=== PATIENT | male | born 1955 | race Caucasian/White ===

== ENCOUNTER 2016-10-28 09:54 | Inpatient (IN) | payer OTHER ==
[2016-10-06 09:13] VITALS: Ht 190.5 cm; Wt 102.3 kg
--- NOTE | 2016-10-06 09:38 | PAT Medication Instructions ---
Service Date Oct 06, 2016. Current Home Medication List No Active Prescriptions or Reported Meds Medication Instructions For Your Scheduled Surgery No Active Prescriptions or Reported Meds - Please contact PAT department if starting any new medications prior surgery. If you have any questions please call us at [phone] or [phone] or [phone]
--- NOTE | 2016-10-06 10:11 | DIAGNOSTIC IMAGING REPORT ---
CHEST 2 VIEWS ROUTINE CLINICAL HISTORY: Preoperative chest COMPARISON STUDY: 07/14/2006 FINDINGS: The heart remains normal in size. There is no evidence of focal pulmonary consolidation. There is no evidence of failure. No pleural effusions are visualized.[ Mild eventration/elevation of the anterior aspect of the right hemidiaphragm is present. IMPRESSION: No active disease in the chest. Electronically signed by: Jessee Platt M.D. 10/06/2016 10:10 AM Dictated Date/Time: 10/06/2016 10:09 AM
[2016-10-06 10:26] LABS: BASO % 0.9 %; BASO ABS # 0.05 K/uL (0-0.2); COMPLETE YES; EOS % 3.2 %; HEMATOCRIT 44.8 % (42-52); IG% 0.2 %; LYMPH % 22.2 %; LYMPH ABS # 1.26 K/uL (1.2-3.4); MEAN CELL VOLUME 89.1 fL (80-100); MEAN CORPUSCULAR HEMOGLOBIN 31.2 pg (25-34); NEUT % 61.5 %; PLATELET COUNT 259 K/uL (130-400); RED BLOOD COUNT 5.03 M/uL (4.7-6.1); WHITE BLOOD COUNT 5.68 K/uL (4.8-10.8)
[2016-10-06 10:36] LABS: PARTIAL THROMBOPLASTIN RATIO 1.1; PROTHROMBIN TIME (PATIENT) 10.4 SECONDS (9.0-12.0)
[2016-10-06 12:33] LABS: BLOOD UREA NITROGEN 17 mg/dl (7-18); BUN/CREATININE RATIO 20.9 (10-20); CALCIUM 9.1 mg/dl (8.5-10.1); CARBON DIOXIDE 25 mmol/L (21-32); CHLORIDE 108 mmol/L (98-107); CREATININE 0.81 mg/dl (0.60-1.40); GLUCOSE 80 mg/dl (70-99); POTASSIUM 4.2 mmol/L (3.5-5.1); SODIUM 140 mmol/L (136-145)
[2016-10-06 12:36] LABS: C-REACTIVE PROTEIN < 0.29 mg/dl (0-0.29)
--- NOTE | 2016-10-23 17:11 | History and Physical ---
History & Physical Documentation Date Oct 23, 2016. Chief Complaint Left knee pain HPI (Knee Pain) Pain Location: Posterior knee, Medial knee Duration: Years Adversely Affecting: ADL's, Work, Recreation Symptoms Include: + Pain History of Injury/Trauma: Uncertain Non-Surgical Therapies: Behavior modification, Exercise program Mechanical Assistive Devices: none Joint Injection: Steroid Prior Orthopedic Procedures: Arthroscopy Past Medical/Surgical History Left carpal tunnel release Right TKR - 07/31/06 Additional History Hepatic Disease: No Endocrine Disorder: No Kidney Disease: No Hypertension: No Heart Disease: No Bleeding Tendencies: No Infectious Diseases: No Family History No Heart disease, No Pulmonary disease, No Anesthesia difficulties, No Bleeding tendencies Social History Smoking Status: Never Smoker Smokeless Tobacco Use: No Marital Status: Housing status: lives with family Occupational Status: employed Allergies Coded Allergies: No Known Allergies (Verified , 10/06/16) Home Medications No Active Prescriptions or Reported Meds Review of Systems Constitutional: No fever, No chills, No sweats, No weight loss, No weakness, No fatigue, No problem reported Respiratory: No cough, No sputum, No wheezing, No shortness of breath, No dyspnea on exertion, No dyspnea at rest, No hemoptysis, No problem reported Cardiovascular: No chest pain, No orthopnea, No PND, No edema, No claudication , No palpitations, No problem reported Abdomen: No pain, No nausea, No vomiting, No diarrhea, No constipation, No GI bleeding, No problem reported Musculoskeletal: + joint pain, + muscle pain Genitourinary - Male: No hematuria, No dysuria, No urinary frequency, No urinary urgency, No urinary hesitancy, No urinary retention, No urinary incontinence, No penile discharge, No lesions, No impotence, No problem reported Neurologic: No memory loss, No paralysis, No weakness, No numbness/tingling, No vertigo, No balance problems, No problem reported Physical Exam Skin: warm/dry, no rash Eyes: normal inspection ENT: normal ENT inspection Head: normocephalic Neck: supple, no adenopathy Respiratory/Chest: lungs clear Cardiovascular: regular rate, rhythm Abdomen / GI: non tender Back: normal inspection Neurovascular: Normal perfusion, Normal motor strength Neurologic/Psych: no motor/sensory deficits Physical Exam (Knee) Inspection: + Effusion Gait: + Antalgic Range of Motion: With crepitation (ROM limited with 5-90 degrees) Alignment: + Genu varum Stability: No Galina, No Anterior drawer, No Varus laxity, No Rotational laxity, No Posterior drawer, No Valgus laxity, No pertinent finding Tenderness: Medial joint line Radiology Plain Films: Osteophytes, Subchondral sclerosis Plain Films Joint Space: [id number], Severe narrowing Diagnosis & Plan Diagnosis & Plan (1) Left Knee DJD Left TKR
[~2016-10-28] VITALS: Ht 190.5 cm; Wt 102.3 kg
[~2016-10-28 09:54] MED LIST: ACETAMINOPHEN 500 MG TAB PO SCH; BUPIVACAINE 0.5 % 5 MG/1 ML PF 10ML VIAL ONE; BUPIVACAINE/EPINEPHRINE 0.25% 10 ML VIAL ONE; CEFAZOLIN 2000 MG/60 ML D5W 60 ML IV SCH; DEXAMETHASONE SOD INJ 4 MG/ML VIAL ONE; FAMOTIDINE 20 MG TAB PO SCH; GABAPENTIN 300 MG CAP PO SCH; LACTATED RINGER'S 1000ML 1,000 ML IV SCH; METOCLOPRAMIDE HCL 10 MG TAB PO SCH; SCOPOLAMINE 1.5 MG TDSY TD SCH; TRANEXAMIC ACID INJ 1,000 MG in SODIUM CHLORIDE 0.9% 100ML 100 ML IV SCH
[2016-10-28 10:38] VITALS: BP 173/102; PULSE 83; TEMP 36.9; O2SAT 96
--- NOTE | 2016-10-28 10:55 | History & Physical Bridge Note ---
H&P Re-Evaluation Bridge Note: I have examined the patient, reviewed the History & Physical and in the interval since the performance of the History & Physical I have noted the following changes of clinical significance: No changes noted
[2016-10-28] MEDS ORDERED: ONDANSETRON INJ 2 MG/ML 2 ML VIAL ONE (12:21)
[2016-10-28] MEDS ORDERED: PROPOFOL IV EMULSION 10 MG/ML 20 ML VIAL IV ONE (12:21)
[2016-10-28] MEDS ORDERED: FENTANYL CITRATE INJ 50 MCG/1 ML 2 ML VIAL ONE (12:21)
[2016-10-28] MEDS ORDERED: MIDAZOLAM HCL 1 MG/ML 2ML VIAL ONE ×2 (12:21)
[2016-10-28] MEDS ORDERED: BACITRACIN 50000 UNIT VIAL ONE (13:14)
[2016-10-28] MEDS ORDERED: BUPIVACAINE LIPOSOME 1/3% 266 MG/20 ML VIAL INFIL ONE (13:14)
[2016-10-28] MEDS ORDERED: SODIUM CHLORIDE 0.9% PF 50 ML VIAL ONE (13:14)
[2016-10-28] MEDS ORDERED: BUPIVACAINE/EPINEPHRINE 0.25% 10 ML VIAL ONE (13:18)
[2016-10-28] MEDS ORDERED: EpHEDrine SULFATE INJ 50 MG/ML AMP IV PRN (13:45)
[2016-10-28] MEDS ORDERED: FENTANYL CITRATE INJ 50 MCG/1 ML 2 ML VIAL IV PRN (13:45)
[2016-10-28] MEDS ORDERED: ATROPINE SULFATE 0.1 MG/ML 5ML SYR IV PRN (13:45)
[2016-10-28] MEDS ORDERED: PROMETHAZINE HCL INJ 6.25 MG in SODIUM CHLORIDE 0.9% 50ML 50 ML IV PRN (13:45)
[2016-10-28] MEDS ORDERED: ONDANSETRON INJ 2 MG/ML 2 ML VIAL IV PRN ×2 (13:45→15:15)
--- NOTE | 2016-10-28 15:13 | [facility] Post Operative Brief Note ---
Immediate Operative Summary Operative Date Oct 28, 2016. Pre-Operative Diagnosis Left knee degenerative joint disease Post-Operative Diagnosis Same as preop Procedure(s) Performed Left total knee arthroplasty Surgeon Dr. Abernathy Rn Cardiac Rehab Surgeon(s) Vipin Celis PA-C Estimated Blood Loss 50ml Findings Left Knee DJD Fluids (cc crystalloids) 1400 cc Specimens A: left knee bone and tissue Drains None Anesthesia Spinal Complication(s) None Disposition Recovery Room / PACU
[2016-10-28] MEDS ORDERED: MAGNESIUM HYDROXIDE SUSP 30 ML UDC PO PRN (15:15)
[2016-10-28] MEDS ORDERED: SILVER SULFADIAZINE 1% CR 50 GM JAR EXT PRN (15:15)
[2016-10-28] MEDS ORDERED: DiphenhydrAMINE HCL 50 MG/ML VIAL IV PRN (15:15)
[2016-10-28] MEDS ORDERED: MoRPHine SULFATE 2 MG/ML CARP IV PRN (15:15)
[2016-10-28] MEDS ORDERED: BISACODYL 10 MG SUPP PR PRN (15:15)
[2016-10-28] MEDS ORDERED: ZOLPIDEM TARTRATE 5 MG TAB PO PRN (15:15)
[2016-10-28] MEDS ORDERED: ALUMINUM/MAGNESIUM/SIMETH (MAALOX MAX) 30 ML UDC PO PRN (15:15)
[2016-10-28] MEDS ORDERED: METOCLOPRAMIDE HCL INJ 5 MG/ML 2 ML VIAL IV PRN (15:15)
[2016-10-28] MEDS ORDERED: TAMSULOSIN HCL 0.4 MG CAP PO PRN (15:15)
[2016-10-28] MEDS ORDERED: PHENYLEPHRINE 100MCG/ML 5ML SYR ONE (15:27)
--- NOTE | 2016-10-28 15:42 | DIAGNOSTIC IMAGING REPORT ---
LEFT KNEE 1 OR 2 VIEWS ROUTINE CLINICAL HISTORY: Postoperative evaluation. COMPARISON: Left knee radiographs September 08, 2016. FINDINGS: Alignment of the total left knee arthroplasty is anatomic. There is no periprosthetic fracture or unexpected radiopaque foreign body. There are skin dayday. IMPRESSION: Expected findings following total left knee arthroplasty. Electronically signed by: Edward Barnard M.D. 10/28/2016 3:41 PM Dictated Date/Time: 10/28/2016 3:41 PM
--- NOTE | 2016-10-28 15:46 | OPERATIVE REPORT ---
DATE OF OPERATION: 10/28/2016 SURGEON: Dr. Sami Abernathy. MACHINE HEEL SPRAYER: FRANKI Mary PREOPERATIVE DIAGNOSIS: Left knee degenerative joint disease. POSTOPERATIVE DIAGNOSIS: Same. PROCEDURE PERFORMED: Left cemented posterior stabilized total knee arthroplasty. COMPLICATIONS: None. ESTIMATED BLOOD LOSS: 50 mL. FLUID REPLACEMENT: 1400 mL crystalloid fluid replacement. TOURNIQUET TIME: 58 minutes at 300 mmHg. ANESTHESIA: Spinal with adductor canal block. DRAINS: None. SPECIMENS: Left knee sent for pathology. OPERATIVE INDICATIONS: The patient is a 61-year-old very active gentleman who is now about 10 years out from a right knee replacement. Over the past several years, he has developed increased pain and discomfort in his left knee. Very temporary response to conservative care. Pain has become more disabling. He elected to proceed with left total knee arthroplasty. OPERATIVE FINDINGS: Operative findings reveal advanced left knee medial compartment DJD. He had grade 4 [id number] disease in the medial femoral condyle and medial tibial plateau. He had a slight varus deformity. He had a flexion contracture of 10 degrees. Moderate size joint effusion. OPERATIVE IMPLANTS: Operative implants consisted of: 1. Biomet Vanguard size 70 left posterior stabilized femoral component. 2. Biomet size 79 tibial tray. 3. A 10-mm posterior stabilized polyethylene insert. 4. A 34 x 8.5 all poly patella. OPERATIVE PROCEDURE: The patient was taken to the operating room, identified and placed on the operating table in the supine position. All contact areas were appropriately padded. IV antibiotics were provided by anesthesia team. A spinal anesthetic and adductor canal block had been provided in the holding area. Salamanca catheter was placed in sterile fashion. Left thigh tourniquet was then placed and left lower extremity was then prepped and draped in the usual sterile fashion. Left leg was elevated and exsanguinated with Esmarch and tourniquet was placed at 300 mmHg. An anterior approach of the left knee was then performed through a longitudinal incision centered over the patella. Sharp dissection was carried through the subcutaneous tissues down to the level of the extensor mechanism. A medial parapatellar arthrotomy incision was made. Some subperiosteal dissection was carried out medially. The fat pad was resected from beneath the patellar tendon. The lateral patellofemoral ligament was released. The patella was everted and knee was flexed. The osteophytes were taken off the distal femur. The ACL and PCL were then released from the distal femur and the tibia subluxated anteriorly. The external tibial alignment jig was then placed in the anterior face of the tibia and adjusted 16 mm medially. Proximal tibial cut was made to remove about 2 mm of bone from the most deficient aspect of the medial tibial plateau. Some osteophytes were taken off medial and posteromedially. Tibia was sized to a size 79. Attention was then drawn to the femur. The distal femur was entered with a sharp drill. Intramedullary canal was suctioned. A left 6-degree valgus cutting guide was placed. Distal femoral cutting block was pinned in place. Distal femoral cut was made to take an additional 3 mm of bone off the distal femur. The femur was then sized to a size 70. We did downsize this slightly. The AP cutting block was pinned parallel to the epicondylar axis, which was 4 degrees of external rotation. The anterior cut, anterior chamfer, posterior cut, and posterior chamfer cuts were made. Box cutting guide was placed and adjusted slightly lateral and the box cut was made. The knee was flexed. The remnants of the medial and lateral meniscus were excised. The osteophytes were taken off the posterior aspect of the femur. Trial femoral component was placed. Tibial tray was pinned in maximum external rotation and drill and stem punch were used to create defect in the proximal tibia for the tibial tray. The knee was then trialed and the 10-mm insert fit most appropriately. Attention was then drawn to the patella. The patella was cleaned of all soft tissues. Patella thickness measured 25 mm and it was cut down to 15. It was sized to a size 34 patella. Lug holes were drilled for a 34 patella. Lateral osteophyte was removed. Patella button was placed. Knee was taken through range of motion and the patella tracked nicely with no thumbs test. Attention was then drawn toward placement of the permanent components. All trial components were removed. Bone plug was placed in the distal femur to limit blood loss. A double batch of Palacos G cement was mixed. A left size 70 posterior stabilized femoral component, size 79 tibial tray, and a 10-mm posterior stabilized polyethylene insert, and a 34 x 8.5 all poly patella then cemented in place. Knee was brought out into full extension until cement hardened. A final cement check was then performed. Pericapsular tissues were injected with 100 mL of a combination of 20 mL of Exparel, 30 mL of normal saline, and 50 mL of 0.25% Marcaine with epinephrine. The patient did receive 1 gram of tranexamic acid. The tourniquet was then let down for final tourniquet time of 58 minutes. Hemostasis was assured with use of electrocautery. The wound was once again irrigated. The extensor mechanism was then closed with a combination of #1 PDS suture and #1 Vicryl suture in a [id number] fashion. Extensor mechanism was checked and found to be intact. Subcutaneous tissues were then closed with 2-0 Dexon suture in a buried interrupted fashion. The skin was closed with skin dayday. Leg was then cleaned and dried and a sterile dressing of Xeroform, 4 x 4, sterile cast padding and Noam bandage were applied. The patient then transferred to the recovery room in stable condition. The patient tolerated the procedure well with no complications. All needle and sponge counts were correct at the end of the operation. I attest to the content of the Intraoperative Record and any orders documented therein. Any exception s are noted below.
--- NOTE | 2016-10-28 15:50 | Anesthesiology Progress Note ---
Anesthesia Post Op Note Date & Time Oct 28, 2016 at 15:50 Vital Signs Pain Intensity: 0 Vital Signs Past 12 Hours Date Time Temp Pulse Resp B/P (MAP) Pulse Ox O2 Delivery O2 Flow Rate FiO2 10/28/16 15:45 36.8 76 20 117/78 98 Nasal Cannula 2 10/28/16 15:35 76 20 121/74 98 Nasal Cannula 2 10/28/16 15:25 68 20 114/76 100 Oxymask 10 10/28/16 15:18 36.2 78 16 118/76 100 Oxymask 10 10/28/16 10:38 36.9 83 20 173/102 96 Room Air Notes Mental Status: alert / awake / arousable, participated in evaluation Pt Amnestic to Procedure: Yes Nausea / Vomiting: adequately controlled Pain: adequately controlled Airway Patency, RR, SpO2: stable & adequate BP & HR: stable & adequate Hydration State: stable & adequate Anesthetic Complications: no major complications apparent
[2016-10-28] MEDS: CHECK SCOPOLAMINE PATCH PLACEMENT SCH (16:00)
[2016-10-28 16:10] VITALS: BP 116/73; PULSE 73; TEMP 36.7; O2SAT 95
[2016-10-28 16:40] VITALS: BP 132/94; PULSE 68; O2SAT 98
[2016-10-28 17:10] VITALS: BP 147/99; PULSE 63; O2SAT 98
[2016-10-28] MEDS: D5W AND 1/2NSS + 20MEQ KCL 1,000 ML IV SCH (17:29)
[2016-10-28] MEDS: KETOROLAC TROMETHAMINE 30 MG/ML VIAL IV. SCH (17:31)
[2016-10-28] MEDS: FERROUS GLUCONATE 324 MG TAB PO SCH (18:03)
[2016-10-28 19:10] VITALS: BP 121/85; PULSE 63; TEMP 36.6; O2SAT 96
[2016-10-28] MEDS: TAPENTADOL ER 50 MG TABCR PO SCH (20:53)
[2016-10-28] MEDS: ASPIRIN 325 MG ECTAB PO SCH (20:54)
[2016-10-28] MEDS: SENNA 8.6 MG TAB PO SCH (20:55)
[2016-10-28] MEDS: DOCUSATE SODIUM 100 MG CAP PO SCH (20:55)
[2016-10-28] MEDS ORDERED: TRANEXAMIC ACID INJ 1,000 MG in SODIUM CHLORIDE 0.9% 100ML 100 ML IV SCH (21:00)
[2016-10-28] MEDS: CEFAZOLIN IV 2,000 MG in DEXTROSE 5% 50ML 50 ML IV SCH (21:55)
[2016-10-28] MEDS: ACETAMINOPHEN 500 MG TAB PO SCH (21:56)
[2016-10-28 23:35] VITALS: BP 113/71; PULSE 71; TEMP 36.8; O2SAT 96
[2016-10-29] MEDS: D5W AND 1/2NSS + 20MEQ KCL 1,000 ML IV SCH ×3 (00:32→13:08)
[2016-10-29] MEDS: KETOROLAC TROMETHAMINE 30 MG/ML VIAL IV. SCH ×5 (00:32→23:18)
[2016-10-29 04:00] VITALS: BP 112/73; PULSE 76; TEMP 36.6; O2SAT 96
[2016-10-29] MEDS: OXYCODONE HCL IR 5 MG TAB (IMMEDIATE RELEASE) PO PRN (04:10)
[2016-10-29] MEDS: CEFAZOLIN IV 2,000 MG in DEXTROSE 5% 50ML 50 ML IV SCH (05:32)
[2016-10-29] MEDS: ACETAMINOPHEN 500 MG TAB PO SCH ×3 (05:33→21:41)
[2016-10-29 06:22] LABS: HEMATOCRIT 39.6 % (42-52); MEAN CELL VOLUME 90.6 fL (80-100); MEAN CORPUSCULAR HGB CONC 33.1 g/dl (32-36); PLATELET COUNT 198 K/uL (130-400); RED BLOOD COUNT 4.37 M/uL (4.7-6.1); WHITE BLOOD COUNT 7.51 K/uL (4.8-10.8)
[2016-10-29 06:46] LABS: BUN/CREATININE RATIO 18.2 (10-20); CALCIUM 8.3 mg/dl (8.5-10.1); CREATININE 0.95 mg/dl (0.60-1.40); POTASSIUM 4.3 mmol/L (3.5-5.1)
[2016-10-29 07:49] VITALS: BP 128/80; PULSE 64; TEMP 36.6; O2SAT 97
[2016-10-29 07:50] VITALS: O2SAT 97
[2016-10-29] MEDS: CHECK SCOPOLAMINE PATCH PLACEMENT SCH ×4 (08:00→23:18)
[2016-10-29] MEDS: ASPIRIN 325 MG ECTAB PO SCH ×2 (08:37→21:39)
[2016-10-29] MEDS: DOCUSATE SODIUM 100 MG CAP PO SCH ×2 (08:38→21:42)
[2016-10-29] MEDS: MULTIVITAMIN TAB PO SCH (08:38)
[2016-10-29] MEDS: FERROUS GLUCONATE 324 MG TAB PO SCH ×3 (08:38→17:54)
[2016-10-29] MEDS: PANTOprazole SOD 40 MG TAB PO SCH (08:38)
[2016-10-29] MEDS: TAPENTADOL ER 50 MG TABCR PO SCH ×2 (08:38→21:42)
[2016-10-29 11:28] VITALS: BP 128/80; PULSE 70; TEMP 36.7; O2SAT 96
--- NOTE | 2016-10-29 12:42 | PROGRESS NOTE ---
DATE: 10/29/2016 SUBJECTIVE: A 61-year-old gentleman, postop day 1 from a left knee replacement. He is doing well. Really not having much pain. No chest pain or shortness of breath. Not feeling dizzy or lightheaded. OBJECTIVE: VITAL SIGNS: Temperature is 37.7. Vital signs stable. PHYSICAL EXAMINATION: GENERAL: This is a pleasant, middle-aged male. He is sitting up in bed and looks quite comfortable. EXTREMITIES: Examination of the left leg reveals the dressing to be clean, dry, and intact. He can dorsiflex and plantarflex his foot appropriately. He is neurologically intact. LABORATORY DATA: Hemoglobin is 13.1, hematocrit 39.6. Electrolytes are stable. ASSESSMENT: A 61-year-old gentleman, postop day 1 from a left knee replacement, doing well. Pain is controlled. PLAN: 1. DVT prophylaxis including thigh-high TEDs, SCDs, and aspirin twice a day. 2. PT/OT. Weightbearing as tolerated. Left total knee protocol. 3. Pain control, doing well with current pain regimen. 4. Disposition: Plan to discharge to home with some home health once adequately recovered.
[2016-10-29 15:02] VITALS: BP 115/72; PULSE 78; TEMP 36.8; O2SAT 98
[2016-10-29] MEDS ORDERED: ASPEC325 PO (19:00)
[2016-10-29] MEDS ORDERED: ACET-24 PO (19:00)
[2016-10-29] MEDS ORDERED: RXC5 PO (19:00)
--- NOTE | 2016-10-29 19:02 | Discharge Instructions ---
Discharge Instructions Date of Service Oct 29, 2016. Admission Reason for Admission: Left Knee Degenerative Joint Disease Discharge Discharge Diagnosis / Problem: Left Knee Replacement Discharge Goals Goal(s): Decrease discomfort, Improve function, Increase independence, Improve disease control, Therapeutic intervention Activity Recommendations Activity Limitations: per Instructions/Follow-up section Weightbearing Status: Left weightbearing . Instructions / Follow-Up Instructions / Follow-Up ACTIVITY RECOMMENDATIONS: Physical Therapy: * You will go to physical therapy three times each week for four to six weeks after your surgery in order to regain your knee range of motion and to retrain your knee to work properly. * It is just as important to make sure you are getting your knee perfectly straight as it is to regain your knee bend. * Taking a pain pill an hour before therapy can help you have a more productive and comfortable therapy session. Home Exercise: * You were shown a series of exercises (heel props, heel slides, etc.) in the hospital. Do these exercises three to four times each day including the exercises you were shown in physical therapy. Walking: * Get up and walk several times each day. For the first four weeks, try not to stand or walk for more than one hour at a time. If you do stand or walk for more than one hour, you will not hurt anything, but your knee and leg will likely swell. * As you feel comfortable, you may change from the walker or crutches to a cane and then to independent walking. MEDICATIONS: New Medicine: * You will likely be taking one or more of these medications: 1. Oxycodone - A quick and shorter-acting pain medication. Take one to two tablets every four to six hours to lessen your pain. 2. Aspirin - Thins your blood to lessen the chance of forming a blood clot. * The most common side effects of pain medicine and iron are nausea and constipation. If nausea or constipation is too much of a problem or if you have any questions about your new medicines or doses, call [facility] at . We will try to help you manage these issues. VERY IMPORTANT TO READ AND REVIEW" Pain: * The immediate post-operative period after knee replacement surgery is often quite painful. * You are given a prescription for pain medicine. You should take it, as directed, when you need it, especially before physical therapy and before going to bed. Pain that interferes with sleep is very common and can last several months. * You will likely need pain medicine for the first four to six weeks. It will not stop all of the pain. The pain will lessen and as you feel better, you may change to milder pain medicine such as Tylenol. * The most common side effects of pain medicine are nausea and constipation, so don't take more than you need. SPECIAL CARE INSTRUCTIONS: TEDs/Elastic Stockings: * The white elastic stockings help limit swelling and prevent blood clots from forming in your legs. The more you wear them, the more they work. * Wear them for six weeks after knee replacement surgery and four weeks after partial knee replacement. Prevention of Infection: * Take antibiotics one hour before any dental cleaning, dental work, urological procedure, gastrointestinal procedure or any invasive surgery in order to prevent your new joint from getting infected. * You may get the antibiotics from the doctor performing the procedure or you may call our office at before and we will call in a prescription to the pharmacy of your choice. Things to Watch For: * Drainage from the incision site that occurs more than one week after your surgery. * Severely increased knee/leg pain or swelling. * Increased redness at the incision site. * Fever above 102 degrees Fahrenheit. * Unusual chest pain or shortness of breath. * Unusual pain or burning with urination. Call [facility] at with any of the above problems or if you have any questions about your medicines or recovery. FOLLOW UP VISIT: Make an appointment to see your doctor for approximately two weeks after surgery for a progress check and staple removal by calling the office at . Current Hospital Diet Patient's current hospital diet: Regular Diet Discharge Diet Recommended Diet: Regular Diet Procedures Procedures Performed: Left total knee arthroplasty Pending Studies Studies pending at discharge: no Medical Emergencies . Who to Call and When: Medical Emergencies: If at any time you feel your situation is an emergency, please call [phone] immediately. . Non-Emergent Contact Non-Emergency issues call your: Surgeon . "Provider Documentation" section prepared by Sami Abernathy. . VTE Core Measure Inpt VTE Proph given/why not?: Other Anticoagulation, T.E.D. Stockings, SCD's
[2016-10-29] MEDS: SENNA 8.6 MG TAB PO SCH (21:41)
[2016-10-29 22:50] VITALS: BP 128/81; PULSE 84; TEMP 36.9; O2SAT 96
[2016-10-30] MEDS: ACETAMINOPHEN 500 MG TAB PO SCH (06:02)
[2016-10-30] MEDS: KETOROLAC TROMETHAMINE 30 MG/ML VIAL IV. SCH (06:02)
[2016-10-30 06:08] VITALS: BP 131/87; PULSE 71; TEMP 36.3; O2SAT 95
[2016-10-30] MEDS: OXYCODONE HCL IR 5 MG TAB (IMMEDIATE RELEASE) PO PRN (07:50)
[2016-10-30] MEDS: FERROUS GLUCONATE 324 MG TAB PO SCH (07:51)
[2016-10-30] MEDS: DOCUSATE SODIUM 100 MG CAP PO SCH (07:51)
[2016-10-30] MEDS: PANTOprazole SOD 40 MG TAB PO SCH (07:51)
[2016-10-30] MEDS: ASPIRIN 325 MG ECTAB PO SCH (07:51)
[2016-10-30] MEDS: MULTIVITAMIN TAB PO SCH (07:52)
[2016-10-30] MEDS: TAPENTADOL ER 50 MG TABCR PO SCH (07:53)
[2016-10-30 08:00] VITALS: BP_SYST 116; BP_SYST 122; BP_DIAS 68; BP_DIAS 78; PULSE 69; PULSE 80; TEMP 36.8; TEMP 37; O2SAT 93; O2SAT 97
[2016-10-30 08:15] VITALS: BP 116/78; PULSE 69; TEMP 37; O2SAT 97
--- NOTE | 2016-10-30 15:26 | PROGRESS NOTE ---
DATE: 10/30/2016 SUBJECTIVE: A 61-year-old gentleman postop day #2 from a left knee replacement. He is doing well. Pain is very well controlled. No chest pain or shortness of breath. Not feeling dizzy or lightheaded. OBJECTIVE: VITAL SIGNS: Temperature is 36.8. Vital signs stable. GENERAL: Physical examination reveals a pleasant, middle-aged male. He is sitting up in bed and looks completely comfortable. LUNGS: Clear to auscultation. HEART: Regular rate and rhythm. ABDOMEN: Soft, nontender, and nondistended. EXTREMITIES: Grossly neurovascularly intact except as follows: Examination of the left leg reveals the leg to be well aligned. Dressing is clean, dry and intact. Some mild swelling. He can dorsiflex and plantarflex his foot appropriately. He is neurologically intact. ASSESSMENT: A 61-year-old gentleman postop day #2 from a left knee replacement, doing well. Pain is controlled. He is neurologically intact. PLAN: 1. DVT prophylaxis including thigh-high TEDs, SCDs, and aspirin twice a day. 2. PT/OT. Weightbearing as tolerated. Left total knee protocol. 3. Pain control. Doing well with current pain regimen. 4. Disposition: He is planning to be discharged home with home health later today.
--- NOTE | 2016-11-12 15:42 | DISCHARGE SUMMARY ---
ADMITTING PHYSICIAN AND SURGEON: Dr. Abernathy. ADMITTING DIAGNOSIS: Left knee degenerative joint disease. SURGERY PERFORMED: Left total knee arthroplasty. SECONDARY DIAGNOSES: Noncontributory. CONSULTS: None obtained. HISTORY AND PHYSICAL EXAMINATION: Well documented in patient's chart. HOSPITAL COURSE: The patient was admitted on 10/28/2016 underwent total knee arthroplasty. He tolerated the procedure well. There were no complications. He was transferred to the PACU postoperatively and later to the orthopedic floor for further care. He was given Ancef for antibiotic prophylaxis, MARLEN stockings, SCDs and aspirin for DVT prophylaxis. Hemoglobin, hematocrit and vital signs were monitored during his hospital stay and remained stable. He did not require any blood transfusions. There were no complications. By postoperative day 2, he was tolerating a general diet. Pain was controlled with oral pain medicine. He was participating in physical therapy and had no signs or symptoms of deep vein thrombosis. On postop day 2, he was discharged home and set up with home health services, given printed discharge instructions including prescriptions for extra strength Tylenol, aspirin 325 mg b.i.d., oxycodone. Continue physical therapy, weightbearing as tolerated, MARLEN stockings. Follow up in 10-12 days or sooner if there are any problems or concerns.
== END 2016-10-30 10:20 | disposition home health service (06) | DRG 470 ==
LOC: C.ACU 09:54 → C.3E 10:22 → ENRESERV 15:46
PROVIDERS: ADMIT Orthopaedic Surgery Sports Medicine; ATTEND Orthopaedic Surgery Sports Medicine
PROC: 0SRD0J9 Replacement of Left Knee Joint with Synthetic Substitute, Cemented, Open Approach (ICD-10-PCS; principal; 2016-10-28 12:30)
DX: M17.12 Unilateral primary osteoarthritis, left knee (principal); M21.162 Varus deformity, not elsewhere classified, left knee; M25.462 Effusion, left knee; Z96.651 Presence of right artificial knee joint